=== PATIENT | female | born 1980 | race Two or more races ===

== ENCOUNTER 2025-05-31 15:39 | Outpatient (CLI) | payer MEDICAID ==
--- NOTE | 2025-05-31 16:51 | RADIOLOGY REPORT ---
CLINICAL HISTORY: HEADACHE,UNSPECIFIED TECHNIQUE: Helical scanning was performed of the head from the skull base to the vertex. Multiplanar reconstructions were performed. This exam was performed according to our departmental dose optimizat ion program. Up-to-date CT equipment and radiation dose reduction techniques are utilized as appropri ate. CTDI 56.3 DLP 974 COMPARISON: CT CT FACIAL BONES/SOFT TISSUE on DOS: 05/31/25 FINDINGS: There is no evidence for acute intracranial hemorrhage, acute ischemic changes, mass, mass effect, or extra-axial fluid collection. There is no hydrocephalus or midline shift. There is no effacement of the cerebral sulci and basal subarachnoid cisterns. The pal-white matter differentiation is well marcella ntained. The imaged paranasal sinuses are clear. IMPRESSION: NO ACUTE INTRACRANIAL ABNORMALITY SEEN.
--- NOTE | 2025-05-31 20:24 | RADIOLOGY REPORT ---
EXAM: CT CT FACIAL BONES/SOFT TISSUE CLINICAL HISTORY: FACE PAIN TECHNIQUE: Multiple contiguous axial images were obtained of the facial bones without intravenous con trast. Sagittal and coronal reformations were obtained. This exam was performed according to our depa rtmental dose optimization program. Up-to-date CT equipment and radiation dose reduction techniques a re utilized as appropriate. Comparison: CT CT HEAD on DOS: 05/31/25 FINDINGS: Prominent periapical lucency in the 1st left maxillary molar. The mastoid air cells and visualized pa ranasal sinuses are well-aerated aside from mild mucosal thickening of ethmoid air cells.. The globes and orbits are normal in appearance without CT evidence of orbital hemorrhage. The extraocular muscl es are intact. No facial, mandibular, or orbital wall fracture is identified. The temporomandibular j oints are maintained. IMPRESSION: 1. No evidence of acute facial fracture or orbital hemorrhage. 2. Periapical lucency in the 1st left maxillary molar.
== END 2025-05-31 23:59 | disposition home or self-care (01) ==
LOC: RAD 15:39
PROVIDERS: ATTEND Family Medicine
DX: R51.9 Headache, unspecified (principal)
CPT/HCPCS: 70450; 70486